=== PATIENT | male | born 1985 | race Hispanic/Latino ===

== ENCOUNTER 2022-12-02 17:16 | Emergency (ER) | payer SELFPAY ==
--- NOTE | ~2022-12-02 | CT_ITS ---
EXAMINATION: CT abdomen pelvis wo con DATE: 12/02/2022 22:42 INDICATION: Left flank pain. Urinary symptoms. TECHNIQUE: Computed tomography (CT) of the abdomen and pelvis was performed without intravenous contr ast. Automated exposure control and iterative reconstruction technique were employed. The dose-length product was 613.55 mGy-cm. COMPARISON: None FINDINGS: Lung bases are clear. Heart size is normal. No pericardial or pleural effusion. Diffuse hepatic steat osis with focal sparing along the gallbladder fossa. Gallbladder, spleen, pancreas and bilateral adre nal glands are normal. Kidneys and ureters are normal with no urolithiasis, hydroureteronephrosis or perinephric/ureteral stranding. Bladder is normal. Bowels including the appendix are normal. No free intraperitoneal gas or fluid. No pathologically enlarged abdominal or pelvic lymphadenopathy. Mild joseline mbar levocurvature with moderate to severe spondylosis at the lumbosacral junction. Mild spondylosis more cephalad lumbar and lower thoracic spine. IMPRESSION: 1. No urolithiasis or acute intra-abdominal/pelvic process. Reviewed, dictated and finalized at location A. [employer]
[2022-12-02 17:35] VITALS: BP 160/91; PULSE 84; RESP 18; TEMP 36.6; O2SAT 98
[2022-12-02 21:36] VITALS: BP 160/106; PULSE 79; RESP 14; TEMP 36.6; O2SAT 100
[2022-12-02 21:50] LABS: Appearance Urine Clear (Clear); Bilirubin Urine Negative (Negative); Blood Urine 2+ (Negative); Color Urine Yellow (Yellow); Glucose Urine UA Negative (Negative); Ketones Urine Negative (Negative); Leukocyte Esterase Ur Negative LEU/UL (Negative); Nitrate Urine Negative (Negative); Protein Urine Negative (Negative); Specific Grav Ur >= 1.030 (1.001-1.035); Urobilinogen Urine 0.2 mg/dL (<2.0); pH Urine 5.5 (5.0-9.0)
[2022-12-02 22:04] LABS: Calcium Oxalate Crystals Urine Present /hpf; Mucus Urine Rare /lpf; WBC Urine 0-3 /hpf
[2022-12-02 22:05] LABS: Add Urine Microscopic? YES
[2022-12-02 22:30] LABS: Basophils Percent Auto 0.4 % (0.2-1.2); Eosinophils Absolute Auto 0.2 K/mm3 (0-0.3); Eosinophils Percent Auto 2.6 % (0-4.4); Hematocrit 45.2 % (42.0-52.0); Hemoglobin 16.3 g/dL (14.0-18.0); Immature Granulocyte Absolute 0.03 K/mm3 (0.00-0.031); Immature Granulocyte Percent A 0.4 % (0-0.5); Lymphocytes Absolute Auto 2.81 K/mm3 (0.9-3.2); Lymphocytes Percent Auto 38.1 % (18.3-44.2); Mean Corpuscular HGB Conc 36.1 g/dl (32-36); Mean Corpuscular Volume 88.8 fl (80-100); Mean Platelet Volume 8.5 fl (7.4-10.4); Monocytes Absolute Auto 0.6 K/mm3 (0.1-0.6); Monocytes Percent Auto 8.1 % (2.6-8.5); Neutrophils Absolute Auto 3.7 K/mm3 (1.3-6.7); Neutrophils Percent Auto 50.4 % (45.5-73.1); Platelet Count Result 199 k/mm3 (150-375); Red Blood Count 5.09 M/mm3 (4.6-6.20); Red Cell Distribution Width 12.4 % (11.5-14.5); White Blood Count 7.4 K/mm3 (4.5-10.0)
[2022-12-02 22:39] LABS: Alanine Aminotransferase 67 U/L (6-50); Albumin Level 4.2 g/dL (3.5-5.1); Alkaline Phosphatase 98 U/L (38-126); Anion Gap 8 mmol/L (8-16); Aspartate Amino Transferase 51 U/L (17-59); Bilirubin,Total 1.1 mg/dL (0.2-1.3); Blood Urea Nitrogen 17 mg/dL (9-20); Calcium 8.9 mg/dL (8.4-10.2); Carbon Dioxide 26 mmol/L (22-30); Chloride 106 mmol/L (98-107); Estimated CRCL calculation 123 ml/min; Estimated Glomerular Filt Rate > 60; Glucose 99 mg/dL (65-110); Potassium 3.9 mmol/L (3.4-5.0); Sodium 140 mmol/L (137-145)
--- NOTE | 2022-12-02 23:02 | ED.BACK ---
HPI - Back Pain/Injury General Chief Complaint: Back Pain/Injury Stated Complaint: pain in lower back Time Seen by Provider: 12/02/22 21:33 Source: patient and train examiner Mode of arrival: ambulatory Limitations: no limitations History of Present Illness HPI Narrative: This is a 37-year-old male who presents for chief complaint of left flank pain onset 3 days ago. RN train examiner assisted with history taking. Patient states that the back pain is limited to the left flank and does not radiate anywhere. States it was very painful at onset 3 days ago but less painful today. Reports 4 out of 10 pain. He works as a implementation services analyst and denies any specific injury to the back. States he does not drink much water on a regular basis. patient states the back pain does not wake him up at night. Also notes some urinary symptoms over the past 2 to 3 months. Reports intermittent frequency. Denies dysuria, hematuria, fevers, chills. Denies abdominal pain, rectal pain. bowel movements have been normal. denies any concern for STDs. Denies saddle anesthesia or bladder or bowel dysfunction. Related Data Allergies Allergy/AdvReac Type Severity Reaction Status Date / Time No Known Allergies Allergy Verified 12/02/22 21:36 Review of Systems Review of Systems: CONSTITUTIONAL: Denies fever, chills, or sweats. EYES: Denies visual changes, redness, or discharge. ENT: Denies rhinorrhea, congestion, sore throat, or otalgia. CARDIOVASCULAR: Denies chest pain, palpitations, or edema. RESPIRATORY: Denies cough or dyspnea. GASTROINTESTINAL: Denies abdominal pain, nausea, vomiting, or diarrhea. GENITOURINARY: Denies dysuria or hematuria. SKIN: Denies rash or itching. MUSCULOSKELETAL: Denies back pain, joint pain, or myalgia. NEUROLOGIC: Denies headache, numbness, dizziness, or weakness. PSYCHIATRIC: Denies anxiety or depression. Exam Narrative: GENERAL: Well-appearing, well-nourished, and in no acute distress. HEAD: Normocephalic, atraumatic. EYES: PERRLA and EOMI. ENT: Nares clear, no rhinorrhea or epistaxis. Mucous membranes moist. Oropharynx without tonsillar hypertrophy exudate or other lesions. NECK: Supple. No adenopathy or masses. CHEST: No respiratory distress. Clear to auscultation. No wheezes rales or rhonchi HEART: Regular rate and rhythm. No murmur heard. Normal peripheral pulses. ABDOMEN: Soft, nontender, nondistended, normal active bowel sounds. Negative flank tenderness EXTREMITIES: Mild paraspinal lumbar tenderness. Normal range of motion. No edema. SKIN: Warm, dry, no rash. NEURO: Alert and oriented x3. No focal deficits. Sensation intact in bilateral lower extremities PSYCH: Normal mood and affect. Course Vital Signs Vital signs: Vital Signs Temperature 97.8 F 12/02/22 17:35 Pulse Rate 84 12/02/22 17:35 Respiratory Rate 18 12/02/22 17:35 Blood Pressure 160/91 H 12/02/22 17:35 Pulse Oximetry 98 12/02/22 17:35 Temperature 97.8 F 12/02/22 21:36 Pulse Rate 79 12/02/22 21:36 Respiratory Rate 14 12/02/22 21:36 Blood Pressure 160/106 H 12/02/22 21:36 Pulse Oximetry 100 12/02/22 21:36 MDM - Back Pain/Injury MDM Narrative Medical decision making narrative: This is a 37-year-old male who presents to the ED for left flank pain onset 3 days ago. Associated urinary symptoms for the past 2 months. UA shows blood but no evidence for infection. Suspected urolithiasis so a CT Noncon was ordered and this was negative. No evidence of any hematoma or hydronephrosis on the scan. Lab work is unremarkable. No evidence of any infection. Pain is controlled. Feel that he likely passed the stone earlier, but will refer to urology for the finding of hematuria. Discussed [id number] pain medications. Instructed to follow-up with urology. Patient is understanding and agreeable with the plan for discharge Lab Data Attestation: I reviewed the patient's lab results. 12/02/22 22:22 12/02/22 22:22
[2022-12-02 23:30] VITALS: BP 141/88; PULSE 77; RESP 19; O2SAT 97
[2022-12-03 01:16] VITALS: BP 149/93; PULSE 67; RESP 14; O2SAT 99
== END 2022-12-03 01:16 | disposition home or self-care (01) ==
PROVIDERS: Emergency Medicine; Emergency Provider Physician Assistant
DX: R31.9 Hematuria, unspecified (principal)
CPT/HCPCS: 36415; 74176; 80053; 81001; 85025; 99284